=== PATIENT | female | born 1955 | race Caucasian/White ===

== ENCOUNTER → 2021-12-21 | Outpatient (CLI) | payer MEDICARE ==
--- NOTE | 2022-01-03 18:53 | MM ---
Reason for Exam: Screening (asymptomatic). Last screening mammogram was performed 12 month(s) ago. Patient History: Estrogen for 2 years from age 43 until age 45. Paternal cousin had breast cancer, age 60. Paternal cousin had breast cancer, age 65. Risk Values: Sandra 5 year model risk: 1.1%. NCI Lifetime model risk: 3.7%. Prior Study Comparison: 11/12/2019 Bilateral MG 3D screening mammo w/cad, [place]. 12/06/2020 Bilateral MG 3D screening mammo w/cad, [place]. Tissue Density: There are scattered fibroglandular densities. Findings: Analyzed By CAD. No suspicious groups of microcalcifications, spiculated or lobular masses, architectural distortion or other secondary signs of malignancy are mammographically apparent. Overall Assessment: Benign, BI-RAD 2 Management: Screening Mammogram of both breasts in 1 year. A negative mammogram report should not preclude additional follow up of suspicious palpable abnormalities. Patient should continue monthly self breast exam. A clinical breast exam by your physician is recommended on an annual basis and results should be correlated with mammographic findings. Electronically signed and approved by: Ladarius Patterson D.O. Radiologis
== END | disposition home or self-care (01) ==
LOC: RADMAMWWP 08:05
PROVIDERS: ATTEND Family Medicine
DX: Z12.31 Encounter for screening mammogram for malignant neoplasm of breast (principal); Z80.3 Family history of malignant neoplasm of breast
CPT/HCPCS: 77063; 77067